=== PATIENT | male | born 1955 | race Caucasian/White ===

== ENCOUNTER → 2018-07-21 | Outpatient (CLI) | payer BC | LOC: BMCIMAGING 08:31 | PROVIDERS: ATTEND Orthopaedic Surgery Hand Surgery | DX: S42.032A Displaced fracture of lateral end of left clavicle, initial encounter for closed fracture (principal); S22.32XA Fracture of one rib, left side, initial encounter for closed fracture; M19.012 Primary osteoarthritis, left shoulder ==

== ENCOUNTER → 2018-08-11 | Outpatient (CLI) | payer BC | LOC: BMCIMAGING 08:05 | PROVIDERS: ATTEND Orthopaedic Surgery Hand Surgery | DX: S42.032A Displaced fracture of lateral end of left clavicle, initial encounter for closed fracture (principal) ==

== ENCOUNTER → 2018-09-01 | Outpatient (CLI) | payer BC | LOC: BMCIMAGING 14:16 | PROVIDERS: ATTEND Internal Medicine | DX: M17.12 Unilateral primary osteoarthritis, left knee (principal); M25.462 Effusion, left knee ==